=== PATIENT | female | born 1950 | race Caucasian/White ===

== ENCOUNTER → 2018-04-20 | Outpatient (CLI) | payer BC | LOC: FIMAGING 15:34 | PROVIDERS: ATTEND Internal Medicine Critical Care Medicine | DX: Z12.31 Encounter for screening mammogram for malignant neoplasm of breast (principal) ==

== ENCOUNTER → 2018-04-29 | Outpatient (CLI) | payer BC | LOC: FIMAGING 13:48 | PROVIDERS: ATTEND Internal Medicine Critical Care Medicine | DX: N63.11 Unspecified lump in the right breast, upper outer quadrant (principal); N63.14 Unspecified lump in the right breast, lower inner quadrant ==

== ENCOUNTER → 2018-05-24 | Day surgery (SDC) | payer BC ==
[~2018-05-24] MED LIST: BUPIVACAINE 0.5% 30 ML SDV ONE; LIDOCAINE 1% 300 MG/30 ML SDV ONE; THROMBIN (BOVINE) 5,000 UNIT VIAL TP ONE
== END ==
LOC: FIMAGING 07:15
PROVIDERS: ATTEND Internal Medicine Critical Care Medicine
DX: Z53.8 Procedure and treatment not carried out for other reasons (principal); N63.11 Unspecified lump in the right breast, upper outer quadrant